=== PATIENT | female | born 1950 | race Caucasian/White ===

== ENCOUNTER 2016-08-27 07:23 | Day surgery (SDC) | payer BC, MEDICARE ==
[~2016-08-27] VITALS: Ht 154.9 cm; Wt 80.0 kg
== END 2016-08-27 10:32 | disposition home or self-care (01) ==
LOC: RAD.S 07:23
PROC: 07DR3ZZ Extraction of Iliac Bone Marrow, Percutaneous Approach (ICD-10-PCS; principal; 2016-08-27)
DX: C90.02 Multiple myeloma in relapse (principal); D64.9 Anemia, unspecified; E03.9 Hypothyroidism, unspecified; E32.8 Other diseases of thymus; Z79.899 Other long term (current) drug therapy